=== PATIENT | male | born 1955 | race Caucasian/White ===

== ENCOUNTER 2017-03-21 11:20 | Outpatient (CLI) | payer BC ==
--- NOTE | ~2017-03-21 | HEMODYNAMI ---
PATIENT:JAROD CARRINGTON MEDICAL RECORD: [id number] : 51 LOCATION:[facility] ADMISSION DATE: 03/21/17 Generatedon:03/21/201714:21 Patient name: JAROD CARRINGTON Patient #: [id number] SSN: DO B: 1955 Date of study: 03/21/2017 Page: Of Hemodynamic Procedure Report Patient Data Patient Demographics Procedure consent was obtained First Name: JAROD Gender: Male Last Name: ZEB : 1955 Middle Initial: AYAAN Age: 61 year(s) Patient #: [id number] Race: Unknown Additional ID: [id number] Contact details [address]: [address] [place] [address] State: [place] City: [place] Zip code: [address] Past Medical History Allergies Allergen Reaction Date Comments Reported Other allergy 03/21/2017 Prednisone Admission Admission Data Admission Date: 03/21/2017 Admission Time: 11:20 Height (in.): 72 BSA: 2.23 (m2) Height (cm.): 182.88 BMI: 30.24 (kg/m2) Weight (lbs.): 223 Weight (kg.): 101.15 Lab Results Lab Result Date: 03/21/2017 Lab Result Time: 0:00 Biochemistry Name Units Result Min Max BUN mg/dl 15 --(--*-)-- 7 18 Creatinine mg/dl 1.1 --(--*-)-- 0.6 1.3 CBC Name Units Result Min Max Hemoglobin g/dl 18.8 --(----)-* 13.5 17.5 Procedure Procedure Types Cath Procedure Diagnostic Procedure C [facility] w/Coronaries Aortic Root Angiography Miscellaneous Procedures Moderate Sedation up to 15 minutes Procedure Description Procedure Date Procedure Date: 03/21/2017 Procedure Start Time: 14:00 Procedure End Time: 14:15 Procedure Staff Name Function Alon Alvarez MD Performing Physician Shruti Fuentes RT Scrub Ramona Cool RT Monitor Curtis Uriostegui RN Nurse Procedure Data Cath Procedure Fluoroscopy Diagnostic fluoroscopy Total fluoroscopy Time: 3.6 time: 3.6 min min Diagnostic fluoroscopy Total fluoroscopy dose: dose: 1219 mGy 1219 mGy Contrast Material Contrast Material Type Amount (ml) Isovue 300 102 Entry Location Entry Primary Successful Side Size Upsize Upsize Entry Closure Succes sful Closure Location (Fr) 1 (Fr) 2 (Fr) Remarks Device Remarks Femoral Right 5 Fr Exoseal artery Estimated blood loss: 10 ml Diagnostic catheters Device Type Used For End Catheter Placement Cordis 5Fr JL 4.0 Procedure Catheter (MP) Diagnostic Infinity 5Fr Procedure JL 5 catheter Cordis 5Fr 3DRC Catheter Procedure (MP) Cordis 5Fr Pigtail Ventriculography Catheter (MP) Procedure Complications No complications Procedure Medications Medication Administration Route Dosage Oxygen NC 2 l/min Heparin Flush Bag added to field 2 bags (1000units/500ml NS) 0.9% NaCl I.V. 100 ml/hr Fentanyl I.V. 50 mcg Versed I.V. 1 mg Fentanyl I.V. 50 mcg Versed I.V. 1 mg Fentanyl I.V. 50 mcg Versed I.V. 1 mg Fentanyl I.V. 50 mcg Versed I.V. 1 mg Hemodynamics Rest BSA: 2.23 (m2) O2 Consumption: Estimated: 275.62 (ml/min) O2 Consumption indexed : Estimated:123.6 (ml/min/m) Heart Rate: 88 (bpm) Pressure Samples Time Site Value (mmHg) Purpose Heart Use Rate(bpm) 14:11 LV 143/-7,22 Snapshot 88 14:12 AO 177/97(134) Pullback 91 14:12 LV 152/4,28 Pullback 91 Gradients Valve Time Site 1 Site 2 Mean SEP/DFP Peak To Heart Use (mmHg) (sec/min) Peak Rate (mmHg) (bpm) Aortic 14:12 LV AO 0 5 0 91 152/4,28 177/97(134) Calculations Valve P-P Mean Valve Index Valve Source Name Gradient Area Flow (cm2) Aortic 0 0 0 0 Snapshots Pre Cath Intra NCS Post Cath Vital Signs Time Heart Resp SPO2 etCO2 NIBP (mmHg) Rhythm Pain Sedation Rate (ipm) (%) (mmHg) Status Level (bpm) 13:48:42 85 19 99 23.8 169/108(143) NSR 0 (11) 10(A) , No pain 13:53:04 78 18 98 39.4 165/100(131) NSR 0 (11) 10(A) , No pain 13:57:20 76 19 98 43.2 141/94(132) NSR 0 (11) 10(A) , No pain 14:01:38 66 17 96 41.7 153/92(133) NSR 0 (11) 9(A) , No pain 14:06:00 75 16 94 40.9 157/103(133) NSR 0 (11) 9(A) , No pain 14:10:24 77 17 95 38.7 151/93(130) NSR 0 (11) 9(A) , No pain 14:14:46 86 18 95 47.6 162/98(129) NSR 0 (11) 9(A) , No pain Medications Time Medication Route Dose Verified Delivered Reason Notes Effec tiveness by by 13:48:59 Oxygen NC 2 Alon Curtis Per l/min Antonio Uriostegui RN physician 13:49:07 Heparin Flush added 2 Alon Curtis used for Bag to bags Antonio Uriostegui leather scrubber (1000units/500ml field NS) 13:49:16 0.9% NaCl I.V. 100 Alon Curtis Per ml/hr Antonio Uriostegui RN physician 13:53:47 Fentanyl I.V. 50 Alon Curtis for mcg Antonio Uriostegui RN sedation 13:53:53 Versed I.V. 1 mg Alon Curtis for Antonio Uriostegui RN sedation 13:55:44 Fentanyl I.V. 50 Alon Curtis for mcg Antonio Uriostegui RN sedation 13:55:47 Versed I.V. 1 mg Alon Curtis for Antonio Uriostegui RN sedation 13:57:40 Fentanyl I.V. 50 Alon Curtis for mcg Antonio Uriostegui RN sedation 13:58:41 Versed I.V. 1 mg Alon Curtis for Antonio Uriostegui RN sedation 14:00:14 Fentanyl I.V. 50 Alon Curtis for mcg Antonio Uriostegui RN sedation 14:00:21 Versed I.V. 1 mg Alon Curtis for Antonio Uriostegui RN sedation Procedure Log Time Note 12:48:33 Patient Height : 72 inches 12:48:40 Patient Weight : 223 lbs 13:25:45 Lacho Mckeon RN sent for patient. Start room use. 13:40:40 Diagnostic Cath status Elective 13:40:46 Time tracking: Regular hours 13:40:52 Plan of Care:Hemodynamics will remain stable., Cardiac rhythm will remain stable., Comfort level will be maintained., Respiratory function will remain adequate., Patient/ family verbilizes understanding of procedure., Procedure tolerated without complication., Recovers from procedure without complications.. 13:41:28 Patient received from Pre/Post Procedure Room to CCL 2 Alert and oriented. Tansferred to table in Supine position. 13:41:30 Warm blankets applied, and chago hugger turned on for patient comfort. 13:41:30 Correct patient and procedure confirmed by team. 13:41:32 Signed procedure consent form obtained from patient. 13:41:35 ECG and BP/O2 sat monitors applied to patient. 13:41:50 H&P Date Dictated: 03/13/2017 Within 30 days and on chart., H&P Addendum completed by physician on day of procedure. (MUST COMPLETE FOR ALL OUTPATIENTS). 13:41:52 Pre-procedure instructions explained to patient. 13:41:54 Family in waiting room. 13:41:55 Patient NPO since Midnight. 13:42:46 Patient allergic to Other allergyPrednisone 13:42:49 Is the patient allergic to Iodine/contrast media? No. 13:42:51 Was the patient premedicated? Yes 13:42:52 Is patient on blood thinner?No 13:47:23 Vital chart was started 13:48:59 Oxygen 2 l/min NC was administered by Curtis Uriostegui RN; Per physician; 13:49:07 Heparin Flush Bag (1000units/500ml NS) 2 bags added to field was administered by Curtis Uriostegui RN; used for procedure; 13:49:16 0.9% NaCl 100 ml/hr I.V. was administered by Curtis Uriostegui RN; Per physician; 13:51:29 Patient diabetic? No. 13:51:38 Snore? Yes 13:51:39 Sleep apnea? No 13:52:00 IV patent on arrival in left forearm with 0.9% NaCl at [facility]. 13:53:05 Lab Result : BUN 15 mg/dl 13:53:05 Lab Result : Creatinine 1.1 mg/dl 13:53:05 Lab Result : Hemoglobin 18.8 g/dl 13:53:10 Lab results completed and on chart. 13:53:15 Right groin area was prepped with chlora-prep and draped in sterile fashion 13:53:16 Alarms reviewed by R. N. 13:53:16 Sharps counted by scrub and verified by R.N. 13:53:17 Physician paged 13:53:20 Physician arrived 13:53:21 --------ALL STOP TIME OUT------ 13:53:22 Final Timeout: patient, procedure, and site verified with staff and physician. All members of the team are in agreement. 13:53:24 Right groin site verified by team. 13:53:29 Sedation plan: IV Moderate Sedation Versed, Fentanyl 13:53:47 Fentanyl 50 mcg I.V. was administered by Curtis Uriostegui RN; for sedation; 13:53:53 Versed 1 mg I.V. was administered by Curtis Uriostegui RN; for sedation; 13:54:21 Use device set Femoral Dx 13:54:23 Acist Syringe opened to sterile field. 13:54:23 Bag Decanter opened to sterile field. 13:54:24 Medline Cath Pack opened to sterile field. 13:54:24 Terumo 5Fr [place] Sheath opened to sterile field. 13:54:24 St Tony 260cm J .035 wire opened to sterile field. 13:54:25 Acist Hand Control opened to sterile field. 13:54:26 Acist Manifold opened to sterile field. 13:54:26 Diagnostic Infinity 5Fr Multipack catheter opened to sterile field. 13:54:27 Tegaderm 4 x 4 opened to sterile field. 13:55:44 Fentanyl 50 mcg I.V. was administered by Curtis Uriostegui RN; for sedation; 13:55:47 Versed 1 mg I.V. was administered by Curtis Uriostegui RN; for sedation; 13:57:40 Fentanyl 50 mcg I.V. was administered by Curtis Uriostegui RN; for sedation; 13:58:41 Versed 1 mg I.V. was administered by Curtis Uriostegui RN; for sedation; 13:59:54 Procedure started. 13:59:54 Full Disclosure recording started 14:00:14 Fentanyl 50 mcg I.V. was administered by Curtis Uriostegui RN; for sedation; 14:00:21 Versed 1 mg I.V. was administered by Curtis Uriostegui RN; for sedation; 14:00:31 Local anesthetic to right femoral artery with Lidocaine 2% by Alon Alvarez MD.INITIAL ACCESS ONLY 14:00:40 A 5 Fr sheath was inserted into the Right Femoral artery 14:01:55 Zero performed for pressure channel P1 14:02:13 A Cordis 5Fr JL 4.0 Catheter (MP) was advanced over the wire and used for Procedure. 14:04:02 Catheter removed. 14:04:19 A Diagnostic Infinity 5Fr JL 5 catheter was advanced over the wire and used for Procedure. 14:04:30 LCA angiography performed. 14:05:26 Catheter removed. 14:06:51 A Cordis 5Fr 3DRC Catheter (MP) was advanced over the wire and used for Procedure. 14:08:22 Catheter removed. 14:08:43 A Cordis 5Fr Pigtail Catheter (MP) was advanced over the wire and used for Ventriculography. 14:11:36 EF : 50 % 14:12:08 Aortic Root visualized 14:13:10 Catheter removed. 14:13:25 Sheath removed intact; hemostasis achieved with Exoseal to the Right Femoral artery. 14:13:36 Cordis 5Fr Exoseal opened to sterile field. 14:13:38 Procedure ended.(Physican Out) 14:13:42 Fluoroscopy time 03.60 minutes. 14:14:05 Fluoroscopy dose: 1219 mGy 14:14:05 Flurop Dose total: 1219 14:14:17 Contrast amount:Isovue 300 102ml. 14:14:20 Sharps counted by scrub and verified by R.N. 14:14:25 Insertion/operative site no bleeding no hematoma. 14:14:27 Post Procedure Pulses reassessed and unchanged 14:14:32 Post-procedure physical assessment completed. ASA score P 2 - A patient with mild systemic disease as per Alon Alvarez MD. 14:14:37 Post procedure rhythm: unchanged. 14:14:40 Estimated blood loss: 10 ml 14:14:59 Procedure type changed to Cath procedure, Diagnostic procedure, LHC, LHC w/Coronaries, Aortic Root Angiography, Miscellaneous Procedures, Moderate Sedation up to 15 minutes 14:15:01 Procedure and supply charges have been captured, reviewed, submitted and are correct. 14:15:23 Procedure Complication : No complications 14:15:26 Vital chart was stopped 14:15:26 See physician's report for complete and final results. 14:15:28 Report given to Pre/Post Procedure Room. 14:15:34 Patient transfered to Pre/Post Procedure Room with Stretcher. 14:15:36 Procedure ended. 14:15:36 Full Disclosure recording stopped 14:15:47 End room use (Document Last) Device Usage Item Name Manufacture Quantity Catalog Hospital Part Current Minimal Lo t# / Number Charge Number Stock Stock Serial# Code Acist Acist 1 [id number] 348698 896106 033022 20 Syringe [employer] Bag Microtek 1 2002S 537851 22709 702356 5 Dec[employer] Medline Cardinal 1 [id number] 555941 61104 720820 5 Cath Pack Health Terumo 5Fr Terumo 1 [id number] 841156 921084 107919 [address] Tony 1 491008 688287 731411 436878 30 260cm J .035 wire Acist Hand Acist 1 33648 695525 454405 440417 5 Control [employer] Inc Acist Acist 1 77617 249597 506980 485364 5 Manifold [employer] Diagnostic Cardinal 1 [id number] 057535 71252 755564 30 Infinity Health 5Fr Multipack catheter Tegaderm 4 3M 1 1626W 307554 937380 032157 5 x 4 Cordis 5Fr Cardinal 1 987373 5 JL 4.0 Health Catheter (MP) Diagnostic Cardinal 1 [id number] 972157 229318 240249 5 [employer]inity Health 5Fr JL 5 catheter Cordis 5Fr Cardinal 1 [id number] 5 3DRC Health Catheter (MP) Cordis 5Fr Cardinal 1 861591 5 Pigtail Health Catheter (MP) Cordis 5Fr Cardinal 1 EX500 690098 433762 823648 10 [employer] Signature Audit [place] Stage Time Signature Unsigned Intra-Procedure 03/21/2017 Ramona Cool 2:21:08 PM RT(R) Signatures Monitor : Ramona Cool Signature : RT Date : Time : [place] [address] [place] [address]
[2017-03-21] MEDS ORDERED: COZAAR100 MG PO (11:41)
[2017-03-21] MEDS ORDERED: VALIUM10 MG PO (11:41)
[2017-03-21] MEDS ORDERED: CRESTOR20 MG PO (11:42)
[2017-03-21 11:49] VITALS: BP 178/110; BMI 29.2
[2017-03-21 11:57] LABS: BASOPHILS 0.1 % (0-2); EOSINOPHILS 3.1 % (0-7); HEMATOCRIT 54.4 % (42.0-54.0); HEMOGLOBIN 18.8 g/dL (13.5-17.5); IMMATURE GRANULOCYTES 0.4 % (0-5); LYMPHOCYTES 22.9 % (15-50); MCHC 34.6 g/dL (31.0-37.0); MCV 95.4 fL (80.0-100.0); MEAN PLATELET VOLUME 11.1 fL (7.4-10.4); MONOCYTES 9.9 % (2-11); NEUTROPHILS 63.6 % (40-80); PLATELET COUNT 231 10x3/uL (130-400); RDW 12.7 % (11.5-14.5)
[2017-03-21 12:16] LABS: ANION GAP 11.1 mmol/L (8-16); CALCIUM 9.9 mg/dL (8.5-10.1); CARBON DIOXIDE 28.9 mmol/L (21.0-32.0); CREATININE - SERUM 1.1 mg/dL (0.6-1.3)
--- NOTE | 2017-03-21 16:23 | NUR ---
1450 LAYING FLAT, AWAKE AND TALKING WITH GIRLFRIEND AT BEDSIDE. ROOM AIR WITH NO RESP. DISTRESS. NSR RATE 72 W NO C/O CHEST PAIN. PULSES PALP X4. R GROIN 5F EXOSEAL C/D/I W NO HEMATOMA OR BLEEDING. 1520 REMAINS FLAT, ROOM AIR. ALL VITALS WNL. R GROIN 5F EXOSEAL C/D/I W NO HEMATOMA OR BLEEDING. FAMILY REMAINS AT SIDE.
--- NOTE | 2017-03-21 16:56 | NUR ---
1620 HOB ELEVATED, WILL MONITOR R GROIN FOR BLEEDING. ALL VITALS WNL R GROIN 5F EXOSEAL C/D/I. 1657 PIV REMOVED FROM LEFT FOREARM WITH BANDAID APPLIED. UP FROM BED, AMBULATED TO BATHROOM TO VOID. BACK TO BEDSIDE. R GROIN REMAINS C/D/I. AT BEDSIDE DRESSING WITH ASSIST FROM GIRLFRIEND.
--- NOTE | 2017-03-21 17:18 | NUR ---
R GROIN REMAINS C/D/I. D/C INSTRUCTIONS DISCUSSED WITH PATIENT AND AT BEDSIDE. WHEELED OUT VIA WHEELCHAIR.
== END 2017-03-21 17:19 | disposition home or self-care (01) ==
LOC: D.CATH 11:20
PROVIDERS: Internal Medicine Cardiovascular Disease
DX: I25.10 Atherosclerotic heart disease of native coronary artery without angina pectoris (principal); Z01.812 Encounter for preprocedural laboratory examination